=== PATIENT | male | born 1985 | race Caucasian/White ===

== ENCOUNTER 2021-09-23 12:06 | Emergency (ER) | payer SELFPAY ==
[2021-09-23] MEDS ORDERED: MORPHINE 4 MG/ML SYR ONE (12:49)
[2021-09-23] MEDS ORDERED: FENTANYL CITR 100 MCG/2 ML ONE (12:56)
--- NOTE | 2021-09-23 13:18 | RAD REPORT ---
EXAM DESCRIPTION: RAD - Shoulder 1 View - 09/23/2021 12:59 pm CLINICAL HISTORY: PAIN COMPARISON: No comparisons FINDINGS: Humeral head dislocation is present. No fracture seen. Axillary projection may be helpful to determine if this is anterior or posterior dislocation.
[2021-09-23] MEDS ORDERED: ONDANSETRON 4 MG/2 ML VIAL ONE (13:20)
[2021-09-23] MEDS ORDERED: propofoL 200 MG/20 ML VIAL IV ONE (13:20)
[2021-09-23] MEDS ORDERED: NA CHLORIDE 0.9% 1,000 ML ONE (13:20)
--- NOTE | 2021-09-23 15:06 | ER ---
Nurse's Notes [facility] Name: Edson Boss Age: 36 yrs Sex: Male : 1985 Arrival Date: 09/23/2021 Time: 12:07 Bed 20 Private MD: Diagnosis: Other dislocation of left shoulder joint Presentation: 09/23 12:09 Chief complaint: Patient states: Reports L shoulder pain for 40 min. Believes its ll1 dislocated. Coronavirus screen: Vaccine status: Patient reports being unvaccinated. Client denies travel out of the [place] in the last 14 days. At this time, the client does not indicate any symptoms associated with coronavirus-19. Ebola Screen: Patient denies travel to an Ebola-affected area in the 21 days before illness onset. Initial Sepsis Screen: Does the patient meet any 2 criteria? No. Patient's initial sepsis screen is negative. Does the patient have a suspected source of infection? No. Patient's initial sepsis screen is negative. Risk Assessment: Do you want to hurt yourself or someone else? Patient reports no desire to harm self or others. Onset of symptoms was September 23, 2021. 12:09 Method Of Arrival: Wheelchair ll1 12:09 Acuity: ALESSANDRO 2 ll1 Triage Assessment: 12:10 General: Appears uncomfortable, Behavior is cooperative, appropriate for age. Pain: ll1 Complains of pain in L shoulder Aggravated by increased activity. Neuro: No deficits noted. Cardiovascular: No deficits noted. Respiratory: No deficits noted. Musculoskeletal: Circulation, motion, and sensation intact. Capillary refill < 3 seconds, Range of motion: limited in left shoulder Reports pain in L shoulder. Injury Description: Crush injury. Historical: - Allergies: 12:10 No Known Allergies; ll1 - PMHx: 12:10 None; ll1 - PSHx: 12:10 None; ll1 - Immunization history:: Client reports having NOT received the Covid vaccine. - Social history:: Smoking status: Patient denies any tobacco usage or history of. Screenin:37 Abuse screen: Denies threats or abuse. Nutritional screening: No deficits noted. ss7 Tuberculosis screening: No symptoms or risk factors identified. Fall Risk IV access (20 points). Assessment: 12:36 General: Appears distressed, uncomfortable, Behavior is anxious. Pain: Complains of ss7 pain in left shoulder. Neuro: No deficits noted. Cardiovascular: Heart tones S1 S2. Respiratory: Breath sounds are clear bilaterally. GI: No deficits noted. : No deficits noted. EENT: No deficits noted. Derm: No deficits noted. Musculoskeletal: Range of motion: limited in left shoulder Reports pain in left shoulder. 15:26 Reassessment: Please see conscious sedation sheet.. ss7 Vital Signs: 12:09 BP 121 / 81; Pulse 77; Resp 18; Temp 98.0; Pulse Ox 98% ; Weight 68.04 kg; Height 5 ft. ll1 8 in. (172.72 cm); Pain 10/10; 13:40 BP 129 / 81; Pulse 87; Resp 22; Temp 98.2; Pulse Ox 100% on 2 lpm NC; ss7 15:05 BP 132 / 91; Pulse 88; Resp 18; Pulse Ox 100% on R/A; ss7 12:09 Body Mass Index 22.81 (68.04 kg, 172.72 cm) ll1 ED Course: 12:07 Patient arrived in ED. kz 12:08 Kunal Eddy MD is Attending Physician. kdr 12:10 Triage completed. ll1 12:10 Arm band placed on Patient placed in an exam room, on a stretcher. ll1 12:36 Yumi Tai, RN is Primary Nurse. ss7 12:37 Patient has correct armband on for positive identification. Bed in low position. Call ss7 light in reach. 12:37 No provider procedures requiring assistance completed. Inserted saline lock: 18 gauge ss7 in right antecubital area, using aseptic technique. 13:00 Shoulder 1 View In Process Unspecified. EDMS 13:59 Assist provider with reduction of left shoulder consent signed for Reduction of left ss7 shoulder utilizing conscious sedation. Procedure began at 1340. Pt tolerated well. Total of 160mg of Propofol given per MD Surjit. Left shoulder reduced at 1345. 14:53 Shoulder 1 View In Process Unspecified. EDMS 15:05 IV discontinued, intact. ss7 Administered Medications: 12:50 Drug: morphine 4 mg Route: IVP; Site: right antecubital; ss7 12:57 Follow up: Response: Pain is unchanged, physician notified ss7 13:01 Drug: fentaNYL (PF) 50 mcg Route: IVP; Site: right antecubital; ss7 13:29 Drug: Zofran (Ondansetron) 4 mg Route: IVP; Site: right antecubital; ss7 13:40 Drug: NS 0.9% 1000 ml Route: IV; Rate: 1 bolus; Site: right antecubital; ss7 13:42 Drug: Propofol 40 mg Route: IVP; Site: right antecubital; ss7 13:42 Drug: Propofol 40 mg Route: IVP; Site: right antecubital; ss7 13:42 Drug: Propofol 40 mg Route: IVP; Site: right antecubital; ss7 13:57 Drug: Propofol 40 mg Route: IVP; Site: right antecubital; ss7 Outcome: 15:05 Discharge ordered by . kdr 15:24 Discharged to home ambulatory, with family. ss7 15:24 Condition: good 15:24 Discharge instructions given to patient, family, Instructed on discharge instructions, follow up and referral plans. Demonstrated understanding of instructions, follow-up care, medications, Prescriptions given X 1. 15:30 Patient left the ED. ss7 Signatures: Dispatcher [employer] EDMS Kunal Eddy MD MD kdr Lewis, Lynsay RN RN ll1 Yumi Tai RN RN ss7 Taty Mues
--- NOTE | 2021-09-23 15:06 | EDPHYS ---
Physician Documentation [facility] Name: Edson Boss Age: 36 yrs Sex: Male : 1985 Arrival Date: 09/23/2021 Time: 12:07 Bed 20 Private MD: ED Physician Kunal Eddy HPI: 09/23 13:55 This 36 yrs old Male presents to ER via Wheelchair with complaints of Shoulder Injury - kdr Left. 13:55 The patient or guardian complains of decreased range of motion, deformity, an injury, kdr pain, that is acute. left shoulder. Context: The problem was sustained at work, resulted from Patient was holding onto a bar as he was crossing some scaffolding and his weight came down on the left shoulder causing it to dislocate. He had no other injuries. Onset: The symptoms/episode began/occurred suddenly, just prior to arrival, 2 hour(s) ago. Modifying factors: the symptoms are alleviated by nothing. The symptoms are aggravated by movement, rotation of arm. Associated signs and symptoms: The patient has no apparent associated signs or symptoms. Severity of symptoms: At their worst the symptoms were moderate, severe, incapacitating, just prior to arrival, in the emergency department the symptoms are unchanged. Treatment prior to arrival includes: no previous treatment. The patient has experienced similar episodes in the past, multiple times, Only on the right shoulder this is the first time on the left shoulder. The patient has not recently seen a physician. Historical: - Allergies: 12:10 No Known Allergies; ll1 - PMHx: 12:10 None; ll1 - PSHx: 12:10 None; ll1 - Immunization history:: Client reports having NOT received the Covid vaccine. - Social history:: Smoking status: Patient denies any tobacco usage or history of. ROS: 13:55 Constitutional: Negative for fever, chills, and weight loss, Eyes: Negative for injury, kdr pain, redness, and discharge, Neck: Negative for injury, pain, and swelling, Cardiovascular: Negative for chest pain, palpitations, and edema, Respiratory: Negative for shortness of breath, cough, wheezing, and pleuritic chest pain, Abdomen/GI: Negative for abdominal pain, nausea, vomiting, diarrhea, and constipation, Back: Negative for injury and pain, : Negative for injury, bleeding, discharge, and swelling, Skin: Negative for injury, rash, and discoloration, Neuro: Negative for headache, weakness, numbness, tingling, and seizure activity. Psych: Negative for depression, anxiety, suicide ideation, homicidal ideation, and hallucinations, Allergy/Immunology: Negative for hives, rash, and allergies, Endocrine: Negative for neck swelling, polydipsia, polyuria, polyphagia, and marked weight changes, Hematologic/Lymphatic: Negative for swollen nodes, abnormal bleeding, and unusual bruising. 13:55 MS/extremity: Positive for injury or acute deformity, decreased range of motion, pain, of the anterior aspect of left shoulder and posterior aspect of left shoulder. Exam: 13:55 Constitutional: This is a well developed, well nourished patient who is awake, alert, kdr and in no acute distress. Head/Face: Normocephalic, atraumatic. Eyes: Pupils equal round and reactive to light, extra-ocular motions intact. Lids and lashes normal. Conjunctiva and sclera are non-icteric and not injected. Cornea within normal limits. Periorbital areas with no swelling, redness, or edema. Neck: Trachea midline, no thyromegaly or masses palpated, and no cervical lymphadenopathy. Supple, full range of motion without nuchal rigidity, or vertebral point tenderness. No Meningismus. Chest/axilla: Normal chest wall appearance and motion. Nontender with no deformity. No lesions are appreciated. Cardiovascular: Regular rate and rhythm with a normal S1 and S2. No gallops, murmurs, or rubs. Normal PMI, no JVD. No pulse deficits. Respiratory: Lungs have equal breath sounds bilaterally, clear to auscultation and percussion. No rales, rhonchi or wheezes noted. No increased work of breathing, no retractions or nasal flaring. Abdomen/GI: Soft, non-tender, with normal bowel sounds. No distension or tympany. No guarding or rebound. No evidence of tenderness throughout. Back: No spinal tenderness. No costovertebral tenderness. Full range of motion. Skin: Warm, dry with normal turgor. Normal color with no rashes, no lesions, and no evidence of cellulitis. Neuro: Awake and alert, GCS 15, oriented to person, place, time, and situation. Cranial nerves II-XII grossly intact. Motor strength 5/5 in all extremities. Sensory grossly intact. Cerebellar exam normal. Normal gait. Psych: Awake, alert, with orientation to person, place and time. Behavior, mood, and affect are within normal limits. 13:55 Musculoskeletal/extremity: Extremities: grossly normal except: noted in the anterior aspect of left shoulder and posterior aspect of left shoulder: decreased ROM. Vital Signs: 12:09 BP 121 / 81; Pulse 77; Resp 18; Temp 98.0; Pulse Ox 98% ; Weight 68.04 kg; Height 5 ft. ll1 8 in. (172.72 cm); Pain 10/10; 13:40 BP 129 / 81; Pulse 87; Resp 22; Temp 98.2; Pulse Ox 100% on 2 lpm NC; ss7 15:05 BP 132 / 91; Pulse 88; Resp 18; Pulse Ox 100% on R/A; ss7 12:09 Body Mass Index 22.81 (68.04 kg, 172.72 cm) ll1 Procedures: 13:53 Reduction: of the left shoulder, using traction, manipulation, Immobilized with kdr shoulder immobilizer. Patient tolerated well. Post reduction film - reveals normal alignment. Moderate sedation: Pre-procedure assessment: the patient has been NPO 2 hour(s) prior to arrival, ASA physical classification: I - healthy, no underlying organic disease, Airway assessment: able to hyperextend neck, Mallampati classification of tongue size: II - faucial pillars and soft palate can be visualized, but uvula is masked by the base of the tongue, Monitoring during procedure: operations liaison, continuous pulse oximetry, nurse at bedside at all times, Medications employed: Fentanyl, Propofol. MDM: 13:55 Data reviewed: vital signs, nurses notes, lab test result(s), radiologic studies. kdr Counseling: I had a detailed discussion with the patient and/or guardian regarding: the historical points, exam findings, and any diagnostic results supporting the discharge/admit diagnosis, radiology results, the need for outpatient follow up. 15:05 Patient medically screened. kdr 09/23 13:00 Order name: Shoulder 1 View; Complete Time: 13:37 EDMS 09/23 14:03 Order name: Shoulder 1 View; Complete Time: 15:52 EDMS 09/23 13:11 Order name: Oxygen Per Protocol; Complete Time: 13:29 cp Administered Medications: 12:50 Drug: morphine 4 mg Route: IVP; Site: right antecubital; ss7 12:57 Follow up: Response: Pain is unchanged, physician notified ss7 13:01 Drug: fentaNYL (PF) 50 mcg Route: IVP; Site: right antecubital; ss7 13:29 Drug: Zofran (Ondansetron) 4 mg Route: IVP; Site: right antecubital; ss7 13:40 Drug: NS 0.9% 1000 ml Route: IV; Rate: 1 bolus; Site: right antecubital; ss7 13:42 Drug: Propofol 40 mg Route: IVP; Site: right antecubital; ss7 13:42 Drug: Propofol 40 mg Route: IVP; Site: right antecubital; ss7 13:42 Drug: Propofol 40 mg Route: IVP; Site: right antecubital; ss7 13:57 Drug: Propofol 40 mg Route: IVP; Site: right antecubital; ss7 Disposition Summary: 09/23/21 15:05 Discharge Ordered Location: Home kdr Problem: new kdr Symptoms: have improved kdr Condition: Stable kdr Diagnosis - Other dislocation of left shoulder joint kdr Followup: kdr - With: Private Physician - When: 2 - 3 days - Reason: If symptoms return, Further diagnostic work-up, Recheck today's complaints, Continuance of care, Re-evaluation by your physician Discharge Instructions: - Discharge Summary Sheet kdr - How to Use a Shoulder Immobilizer kdr - Shoulder Dislocation, [id number] kdr Forms: - Medication Reconciliation Form kdr - Thank You Letter kdr - Prescription Opioid Use kdr Prescriptions: - Tramadol 50 mg Oral Tablet - take 1 tablet by ORAL route every 8 hours as needed; 12 tablet; Refills: 0, kdr Product Selection Permitted Signatures: Dispatcher [employer] EDMS Kunal Eddy MD MD kdr Natalio Godoy PA PA cp Lewis, Lynsay, RN RN ll1 Yumi Tai RN RN ss7 Corrections: (The following items were deleted from the chart) 13:00 12:10 Shoulder Left 2 View+RAD.[email or web address].[email or web address] ordered. EDMS EDMS 14:03 13:53 Shoulder Left 2 View+RAD.[email or web address] ordered. EDMS EDMS
--- NOTE | 2021-09-23 15:12 | RAD REPORT ---
EXAM DESCRIPTION: RAD - Shoulder 1 View - 09/23/2021 2:51 pm CLINICAL HISTORY: Post reduction;Pain COMPARISON: <Comparisons> FINDINGS: Previously noted dislocation of the left shoulder has been reduced. No fracture seen.
[2021-09-23 15:36] VITALS: TEMP 98.2; O2SAT 100
[2021-09-23 15:37] VITALS: BP 132/91
== END 2021-09-23 15:30 | disposition home or self-care (01) ==
LOC: ER 12:06
PROC: 0RSKXZZ Reposition Left Shoulder Joint, External Approach (ICD-10-PCS; principal; 2021-09-23)
DX: S43.085A Other dislocation of left shoulder joint, initial encounter (principal); X58.XXXA Exposure to other specified factors, initial encounter; Y93.89 Activity, other specified; Y92.89 Other specified places as the place of occurrence of the external cause; Y99.8 Other external cause status
CPT/HCPCS: 73020; 96374; 96375; 99285; J2405; J2704; J3010; J7030